=== PATIENT | female | born 1970 | race Caucasian/White ===

== ENCOUNTER 2018-07-11 15:21 | Inpatient (IN) | payer OTHER ==
[2018-07-11] MEDS ORDERED: Sodium Chloride 0.9% 1,000 ML IV STA (15:59)
[2018-07-11 16:25] LABS: BASO % 0.4 % (0.0-2.0); EOS # 0.5 K/uL (0.0-0.7); EOS % 6.9 % (0.0-4.0); HEMOGLOBIN 14.4 g/dL (12.0-16.0); LYMPH # 1.4 K/uL (1.0-4.3); MEAN CELL VOLUME 87.5 fl (81.0-99.0); MEAN CORPUSCULAR HEMOGLOBIN 29.3 pg (27.0-31.0); MEAN CORPUSCULAR HGB CONC 33.5 g/dL (33.0-37.0); MEAN PLATELET VOLUME 7.2 fl (7.2-11.7); MONO # 0.7 K/uL (0.0-0.8); MONO % 9.6 % (0.0-10.0); NEUT # 4.3 K/uL (1.8-7.0); NEUT % 62.1 % (50.0-75.0); NRBC % 0.1 % (0.0-0.0); RBC 4.91 Mil/uL (3.80-5.20); RED CELL DISTRIBUTION WIDTH 12.9 % (11.5-14.5); WHITE BLOOD COUNT 6.9 K/uL (4.8-10.8)
--- NOTE | 2018-07-11 16:32 | RAD ---
Date of service: 07/11/2018 HISTORY: cough COMPARISON: No prior. FINDINGS: LUNGS: No active pulmonary disease. PLEURA: No significant pleural effusion identified, no pneumothorax apparent. CARDIOVASCULAR: No aortic atherosclerotic calcification present. Normal cardiac size. No pulmonary vascular congestion. OSSEOUS STRUCTURES: No significant abnormalities. VISUALIZED UPPER ABDOMEN: Normal. OTHER FINDINGS: None. IMPRESSION: No active disease.
[2018-07-11 16:33] LABS: BLOOD UREA NITROGEN 23 mg/dl (7-17); CALCIUM 10.3 mg/dL (8.4-10.2); GFR NON-AFRICAN AMERICAN > 60
--- NOTE | 2018-07-11 18:37 | ED PDOC ---
HPI: Influenza Time Seen by Provider: 07/11/18 15:48 Chief Complaint: Flu-like Symptoms Chief Complaint (Provider): Flu-like Symptoms History Per: Patient Exam Limitations: no limitations Onset/Duration Of Symptoms: Days (x1 day) Symptoms include: headache, vomiting. denies: fever, diarrhea Sick Contacts (Context): None Additional complaint(s):: Kasie Jones is a 47 year old female with a past medical history of HTN, who presents to the emergency department complaining of vomiting, headache and dizziness, onset x1 day. Patient states she has not been able to tolerate food or drinks today. She denies any fever, diarrhea, sick contact or previous abdominal surgeries. PMD: Daniel Mcbride Past Medical History Reviewed: Historical Data, Nursing Documentation, Vital Signs Vital Signs: Last Vital Signs Temp 98.5 F 07/11/18 15:32 Pulse 72 07/11/18 15:32 Resp 17 07/11/18 15:32 BP 124/72 07/11/18 15:32 Pulse Ox 93 L 07/11/18 15:32 - Medical History PMH: HTN - Surgical History Surgical History: No Surg Hx - Family History Family History: States: Unknown Family Hx - Immunization History Hx Tetanus Toxoid Vaccination: No Hx Influenza Vaccination: No Hx Pneumococcal Vaccination: No - Home Medications Home Medications: Ambulatory Orders Medication Instructions Recorded Unobtainable 02/23/16 - Allergies Allergies/Adverse Reactions: Allergies Allergy/AdvReac Type Severity Reaction Status Date / Time No Known Allergies Allergy Verified 02/23/16 19:14 Review of Systems ROS Statement: Except As Marked, All Systems Reviewed And Found Negative Constitutional: Negative for: Fever Gastrointestinal: Positive for: Vomiting. Negative for: Diarrhea Neurological: Positive for: Headache, Dizziness Physical Exam - Reviewed Nursing Documentation Reviewed: Yes Vital Signs Reviewed: Yes - Physical Exam Appears: Positive for: Non-toxic, No Acute Distress Head Exam: Positive for: ATRAUMATIC, NORMOCEPHALIC Skin: Positive for: Normal Color, Warm, Dry Eye Exam: Positive for: Normal appearance Neck: Positive for: Normal, Painless ROM, Supple Cardiovascular/Chest: Positive for: Regular Rate, Rhythm. Negative for: Murmur Respiratory: Positive for: Normal Breath Sounds. Negative for: Respiratory Distress Gastrointestinal/Abdominal: Positive for: Normal Exam, Soft. Negative for: Tenderness Back: Positive for: Normal Inspection. Negative for: L CVA Tenderness, R CVA Tenderness, Vertebral Tenderness Extremity: Positive for: Normal ROM. Negative for: Pedal Edema, Deformity Neurologic/Psych: Positive for: Alert, Oriented Medical Decision Making Medical Decision Making: Time: 15:58 A/P: Work up for infectious process, abdomen exam was benign, IV fluids, Zofran, Toradol, Chest x-ray and Reglan. --BMP --CBC with differential --Chest-xray --Sodium chloride 1,000 ml --Reglan 10 mg IVP --Toradol 30 mg IVP --Influenza A B 16:28 Chest x-ray FINDINGS: LUNGS: No active pulmonary disease. PLEURA: No significant pleural effusion identified, no pneumothorax apparent. CARDIOVASCULAR: No aortic atherosclerotic calcification present. Normal cardiac size. No pulmonary vascular congestion. OSSEOUS STRUCTURES: No significant abnormalities. VISUALIZED UPPER ABDOMEN: Normal. OTHER FINDINGS: None. IMPRESSION: No active disease. 18:25 Patient is now expressing suicidal ideation, stating she now wants to kill herself. Provider ordered crisis consultation. 1930 Pt with normal labs and unremarkable physical exam. Pt seen by psychiatry and will be admitted to psychiatry under Dr. Richardson for depression. Scribe Attestation: Documented by Edilson Jordan , acting as a scribe for Jenna Morales MD. Provider Scribe Attestation: All medical record entries made by the Scribe were at my direction and personally dictated by me. I have reviewed the chart and agree that the record accurately reflects my personal performance of the history, physical exam, medical decision making, and the department course for this patient. I have also personally directed, reviewed, and agree with the discharge instructions and disposition. - Laboratory Results Result Diagrams: 07/11/18 16:10 07/11/18 16:10 - ECG O2 Sat by Pulse Oximetry: 93 (RA) Pulse Ox Interpretation: Abnormal Disposition - Clinical Impression Clinical Impression: Depression, Headache - Patient ED Disposition Is Patient to be Admitted: Yes - Disposition Disposition Time: 19:30 Condition: STABLE Forms: [facility] (Yi)
[2018-07-11 20:23] VITALS: O2SAT 96
[2018-07-11] MEDS ORDERED: DiphenhydrAMINE 50 mg/ml Inj IM PRN (22:25)
[2018-07-11] MEDS ORDERED: Magnesium Hydroxide Susp 30 ml UD PO PRN (22:25)
--- NOTE | 2018-07-11 22:40 | PCM.BM ---
<Tai Wilson - Last Filed: 07/11/18 23:11> Treatment Plan Problems - Problems identified on initial assessmt Feeling of Hopelessness/Helplessness Date Initiated: 07/11/18 Time Initiated: 22:37 Assessment reference: HP, NA Status: Active Treatment assets and liabiliti Patient Assests: adapts well (with son abusing marijuana), cooperative, good support system, negotiates basic needs Patient Liabilities: relationship conflicts - Milieu Protocol Maintain good personal hygiene: daily Encourage regular showers, daily Remind patient to perform daily oral care, daily Assist patient to perform ADL's Maintain personal safety: every shift Educate patient to report safety concerns to staff, every shift Monitor environment for contraband/sharps Medication safety: Monitor for expected outcome, potential side effects: every shift, Assess barriers to learning: every shift, Assess readiness for medication education: every shift <Carly Giron - Last Filed: 07/12/18 11:34> - Diagnosis (1) Major depressive disorder Status: Acute Interventions: Medication management, Individual and group therapy, Psychoeducation 07/12/18 11:35 <Danielle Callahan - Last Filed: 07/12/18 13:04> Family Contact Family involvement: Family/SO is involved Family contact: Patient agrees to contact, Family has been contacted by patient, Telephone contact initiated by staff Family contact name: Kaleb - mother Family contacted how many times per week?: 2 - Outside Agency Dr. Tai Brenner MD Care involvment: Information-sharing Agency contact number: [facility] Care involvment: Not involved Agency contact number: [phone] Discharge/Continuing Care - Education Needs Education Needs: Family Medication, Family Diagnosis/Disease Process, Family Coping Skills, Family Placement options, Family Community resources, Family Activities of Daily Living, Family Nutrition, Family Health Practices/Safety, Family Personal Hygiene/Grooming, Family Aftercare Safety Plan, Patient Medication, Patient Diagnosis/Disease Process, Patient Coping Skills, Patient Placement options, Patient Community resources, Patient Activities of Daily Living, Patient Nutrition, Patient Health Practices/Safety, Patient Personal Hygiene/Grooming, Patient Aftercare Safety Plan - Discharge Discharge Criteria: Tolerates medication w/o severe side effects, Free of Suicidal thoughts, Normal sleep pattern, Ability to care for self, Reduction of target symptoms, Other (Reduction of depressive symptoms) Discharge to:: With Family - Additional Comments 07/12/18 12:54 Pt seen and discussed in team meeting. Reason for hospitalization reviewed and discussed. Pt reported she was initially referred to the ED due to flu like symptoms. Pt reported that she was experiencing dizziness, vomiting, low back pain, and frequency of urination. Pt reported that she has been dx with depression and anxiety in the past. Pt reported that her mother disclosed to the ED nurse that last week pt stated "I feel like dying." Pt denied intent and plan. Pt reported that lately she has been feeling sick and that is just how she felt at the moment. Pt denied SI and HI. Pt denied any prior suicide thoughts/attempts/intent/plan. Pt reported that she has been refusing to leave the house unless she is 'forced" by someone else, refusing to shower, and isolate and withdrawn from and son. Pt reported that at home she would spend most of her time in the bedroom. Pt reported having no motivation and initiation. Pt reported that 3-4 months ago she was recommended to Dr. Jordin MD by a friend and since then has been under his care. Pt reported that she has not met him in person, but rather seeks tx with him via telepsych. Pt reported that he has prescribed her multiple mediations but never explained what the medications are for. Attending psychiatrist, Dr. Giron reviewed current medication list with pt at length and in detail. Pt verbalized agreement to several medication discontinuation and increase of other medications. Pt's social and medical issues reviewed. Pt provided brief writer with verbal and written consent to contact her mother, Kaleb. Tx plan and goals reviewed. Pt verbalized agreement to tx plan and continued stay on the unit. Dispensing Operator will continue to follow case. - Treatment Team Participation Discussed with Family/SO: No Was Patient/Family/SO present at Treatment Team Meeting: Yes
[2018-07-12 08:09] LABS: SQUAMOUS EPITHIAL 9 /hpf (0-5); URINE AMORPHOUS SEDIMENT OCC /ul (<OCC); URINE BACTERIA RARE (<OCC); URINE BILIRUBIN NEGATIVE (NEGATIVE); URINE BLOOD NEGATIVE (NEGATIVE); URINE CLARITY TURBID (Clear); URINE COLOR YELLOW (YELLOW); URINE GLUCOSE (UA) NEG (NEGATIVE); URINE LEUKOCYTE ESTERASE SMALL Leu/uL (Negative); URINE PROTEIN 30 mg/dL (NEGATIVE); URINE TRIPLE PHOSPHATE CRYSTAL MOD /hpf (<OCC); URINE UROBILINOGEN 0.2-1.0 mg/dL (0.2-1.0)
--- NOTE | 2018-07-12 08:16 | PCM.PSYCH ---
Initial Psychiatric Evaluation - Initial Psychiatric Evaluation Type of Admission: Voluntary Legal Status: Capacity Chief Complaint (in patient's own words): "I'm depressed." Patient's Reaction to Hospitalization: HPI: 47 yo female w/ h/o MDD, presents w/ worsening depression, decreased desire to leave her home, showering less, not caring for ADLS, poor sleep/appetite and hopelessness. The week prior to admission the patient expressed ideation to to her mother, but denies acute suicidal ideation/plan/intent. She denies acute AH/VH/paranoia/delusions. A + O x 3. Patient does not report any cognitive deficits. PPHx: Outpatient psychiatric treatment with Dr. Brenner; currently on Trintellix, Buproprion, Temazepam, Effexor, Xanax, Lamictal, Namenda; patient is unclear why she is being treated with so many medications and denies cognitive deficits which would warrant her to be treated with Namenda PMHx: HTN, Allergies ALL: NKDA SHx: Lives w/ and 22yr old son; has 3 children in total; currently unemployed, denies drugs/etoh/cig use Current Medications: Active Medications Generic Name Dose Route Start Last Admin Trade Name Freq PRN Reason Stop Dose Admin Acetaminophen 650 mg 07/11/18 22:25 Tylenol 325mg Tab PO Q4 PRN for 4-7 pain Al Hydrox/Mg Hydrox/Simethicone 30 ml 07/11/18 22:25 Maalox Plus 30 Ml PO Q4 PRN Dyspepsia Diphenhydramine HCl 50 mg 07/11/18 22:25 Benadryl IM Q6 PRN Extrapyramidal S/S Unable PO Diphenhydramine HCl 50 mg 07/11/18 22:25 Benadryl PO Q6 PRN Extrapyramidal Symptoms Diphenhydramine HCl 50 mg 07/11/18 22:25 Benadryl PO HS PRN Sleep Haloperidol 5 mg 07/11/18 22:25 Haldol PO Q4 PRN Agitation Haloperidol Lactate 5 mg 07/11/18 22:25 Haldol IM Q4 PRN Agitation, Unable to Take PO Lorazepam 1 mg 07/11/18 22:25 Ativan IM Q6 PRN Anxiety/Agitation,Unable PO Lorazepam 1 mg 07/11/18 22:25 Ativan PO Q8 PRN Anxiety/Agitation Magnesium Hydroxide 30 ml 07/11/18 22:25 Milk Of Magnesia PO HS PRN Constipation Past Psychiatric History - Past Psychiatric History Pertinent Medical Hx (Current Medical&Sleep Prob, Allergies): Allergies Allergy/AdvReac Type Severity Reaction Status Date / Time No Known Allergies Allergy Verified 02/23/16 19:14 Alprazolam [Xanax] 0.25 mg PO Q6 PRN 07/11/18 Atorvastatin [Lipitor] 20 mg PO HS 07/11/18 Bupropion HCl [Zyban] 150 mg PO HS 07/11/18 Conjugated Estrogens [Premarin] 0.625 mg PO HS 07/11/18 Lamotrigine [Lamictal] 200 mg PO HS 07/11/18 Levocetirizine Dihydrochloride [Xyzal] 5 mg PO DAILY 07/11/18 Losartan/Hydrochlorothiazide [Losartan-Hctz 100-25 mg Tab] 1 tab PO DAILY 07/11/18 Memantine [Namenda] 10 mg PO BID 07/11/18 Metoprolol Succinate [Kapspargo Sprinkle] 100 mg PO DAILY 07/11/18 Montelukast [Singulair] 10 mg PO DAILY 07/11/18 Temazepam [Restoril] 30 mg PO HS PRN 07/11/18 Venlafaxine [Effexor XR] 75 mg PO DAILY 07/11/18 Vortioxetine Hydrobromide [Trintellix] 20 mg PO AC 07/11/18 Review of Systems - Psychiatric Psychiatric: As Per HPI, Abnormal Sleep Pattern, Anhedonia, Anxiety, Behavioral Changes, Change in Appetite, Depression, Difficulty Concentrating, Hopelessness, Irritability, Mood Swings, Suicidal Ideation Mental Status Examination - Personal Presentation Personal Presentation: Looks stated age - Affect Affect: Constricted, Depressed - Motor Activity Motor Activity: Calm - Reliability in Providing Information Reliability in Providing Information: Fair - Speech Speech: Organized, Coherent - Mood Mood: Depressed - Formal Thought Process Formal Thought Process: Circumstantial - Hallucinations/Delusions Additional comments: No AH/VH/paranoia/delusions - Obsessions/Compulsions Obsessions: No Compulsions: No - Cognitive Functions Orientation: Person, Place, Situation, Time Sensorium: Alert Attention/Concentration: Attentive Judgement: Intact, as evidence by: Insight regarding need for hospitalization Memory: Recent intact, as evidence by: Ability to recall events of the day - Risk Risk: Diminished functioning - Strength & Assets Inventory Strength & Assets Inventory: Cooperative DSM 5 DX - DSM 5 DSM 5 Diagnosis: Major Depressive Disorder, Severe, Recurrent - Recommended/Plan of Treatment Treatment Recommendations and Plan of Treatment: Major Depressive Disorder, Severe, Recurrent; r/o Bipolar II Disorder -Admit to psychiatry unit -Discussed w/ patient that we will reduce polypharmacology as it is not helping the patient is likely causing increased risk of adverse effects; hold Trintellix, Xanax, Effexor, Namenda; Increase Bupropion; Continue Temazepam and Lamictal -Medicine consult -Individual and group therapy -Psychoeducation -Disposition planning Projected ELOS: 5-7 days Discharge Plan and Discharge Criteria: Discharge when patient is psychiatrically stable - Smoking Cessation Smoking Cessation Initiated: No Reason for not providing: Not indicated
[2018-07-12] MEDS ORDERED: Patient's Own Med (Losartan/Hydrochlorothiazide [Losartan-Hctz 100-25 Mg Tab] 1 TAB) PO SCH (11:30)
[2018-07-12] MEDS ORDERED: METOPROLOL SUCCINATE 100 MG PO SCH (12:00)
[2018-07-12 12:04] LABS: T4 9.32 ug/dl (5.5-11.0)
[2018-07-12] MEDS: buPROPion SR 150 MG TABLET PO SCH ×2 (13:11→16:28)
--- NOTE | 2018-07-13 07:46 | CP.PCM.CON ---
<Gonzalez Schultz - Last Filed: 07/13/18 15:41> History of Present Illness - History of Present Illness History of Present Illness: Pt is a47 y/o female with hx of alcohol abuse Pt is a 47 y/o female with hx of HTN who presented to [facility] ED on 07/11 with complaints of vomiting and dizziness and was found to be hypokalemic, dehydrated, with abnormal UA. She was treated with 1L IV fluids and Reglan. She also reports today that she has had a non productive cough for the past 2 days. Denies fever/chills. Cxray in ED shows no active disease. Later in ED course, pt expressed suicidal ideation and was admitted to psych for further evaluation and treatment of major depressive disorder. ROS 12 point negative. PMD: Daniel Mcbride PMHX: HTN, Asthma, Bipolar, depression, Anxiety PsurgHx: denies PFmhx: denies NKDA Social: non smoker Past Patient History - Past Social History Smoking Status: Never Smoked - CARDIAC Hx Hypertension: Yes - PSYCHIATRIC Hx Depression: Yes Hx Substance Use: No - SURGICAL HISTORY Hx Hysterectomy: Yes - ANESTHESIA Hx Anesthesia: Yes Hx Anesthesia Reactions: No Hx Malignant Hyperthermia: No Has any member of the family had a problem w/ anesthesia?: No Meds Allergies/Adverse Reactions: Allergies Allergy/AdvReac Type Severity Reaction Status Date / Time No Known Allergies Allergy Verified 02/23/16 19:14 - Medications Medications: Current Medications Acetaminophen (Tylenol 325mg Tab) 650 mg PO Q4 PRN PRN Reason: for 4-7 pain Last Admin: 07/12/18 09:08 Dose: 650 mg Al Hydrox/Mg Hydrox/Simethicone (Maalox Plus 30 Ml) 30 ml PO Q4 PRN PRN Reason: Dyspepsia Amlodipine Besylate (Norvasc) 5 mg PO DAILY ASHER Atorvastatin Calcium (Lipitor) 20 mg PO HS ASHER Last Admin: 07/12/18 21:03 Dose: 20 mg Bupropion HCl (Wellbutrin Sr 150 Mg) 150 mg PO BID ASHER Last Admin: 07/12/18 16:28 Dose: 150 mg Diphenhydramine HCl (Benadryl) 50 mg IM Q6 PRN PRN Reason: Extrapyramidal S/S Unable PO Diphenhydramine HCl (Benadryl) 50 mg PO Q6 PRN PRN Reason: Extrapyramidal Symptoms Diphenhydramine HCl (Benadryl) 50 mg PO HS PRN PRN Reason: Sleep Estrogens Conjugated (Premarin) 0.625 mg PO HS [facility] Haloperidol (Haldol) 5 mg PO Q4 PRN PRN Reason: Agitation Haloperidol Lactate (Haldol) 5 mg IM Q4 PRN PRN Reason: Agitation, Unable to Take PO Hydrochlorothiazide (Hydrodiuril) 25 mg PO DAILY [facility] Last Admin: 07/12/18 16:27 Dose: 25 mg Lamotrigine (Lamictal) 200 mg PO DAILY [facility] Last Admin: 07/12/18 13:09 Dose: 200 mg Lorazepam (Ativan) 1 mg IM Q6 PRN PRN Reason: Anxiety/Agitation,Unable PO Lorazepam (Ativan) 1 mg PO Q8 PRN PRN Reason: Anxiety/Agitation Losartan Potassium (Cozaar) 100 mg PO DAILY [facility] Last Admin: 07/12/18 16:28 Dose: 100 mg Magnesium Hydroxide (Milk Of Magnesia) 30 ml PO HS PRN PRN Reason: Constipation Montelukast Sodium (Singulair) 10 mg PO DAILY [facility] Last Admin: 07/12/18 13:10 Dose: 10 mg Temazepam (Restoril) 15 mg PO HS [facility] Last Admin: 07/12/18 21:03 Dose: 15 mg Physical Exam - Constitutional Appears: No Acute Distress - Head Exam Head Exam: NORMAL INSPECTION - Eye Exam Eye Exam: Normal appearance - ENT Exam ENT Exam: Mucous Membranes Moist Additional comments: +nasal congestion - Neck Exam Neck exam: Positive for: Full Rom - Respiratory Exam Respiratory Exam: Clear to Auscultation Bilateral. absent: Accessory Muscle Use, Rales, Rhonchi, Wheezes, Respiratory Distress, Stridor - GI/Abdominal Exam GI & Abdominal Exam: Normal Bowel Sounds, Soft. absent: Tenderness - Extremities Exam Extremities exam: Positive for: normal inspection - Neurological Exam Neurological exam: Alert, Oriented x3 - Psychiatric Exam Psychiatric exam: Normal Affect - Skin Skin Exam: Normal Color Results - Vital Signs Recent Vital Signs: Last Vital Signs Temp 97.9 F 07/13/18 05:39 Pulse 82 07/13/18 05:39 Resp 18 07/13/18 05:39 BP 145/76 12/11/18 05:39 Pulse Ox 96 07/11/18 22:09 - Labs Result Diagrams: 07/11/18 16:10 07/11/18 16:10 Labs: Laboratory Results - last 24 hr 07/12/18 07/12/18 07/12/18 07:45 08:50 08:50 Hemoglobin A1c Triglycerides 171 H Cholesterol 215 H LDL Cholesterol Direct 125 HDL Cholesterol 75 H Thyroxine (T4) 9.32 TSH 3rd Generation 2.81 Urine Color Yellow Urine Clarity Turbid Urine pH 8.0 Ur Specific [place] 1.019 Urine Protein 30 Urine Glucose (UA) Neg Urine Ketones Negative Urine Blood Negative Urine Nitrate Negative Urine Bilirubin Negative Urine Urobilinogen 0.2-1.0 Ur Leukocyte Esterase Small Urine RBC (Auto) 2 Urine Microscopic WBC 24 H Ur Squamous Epith Cells 9 H Triple Phos Crystals Mod H Amorphous Sediment Occ H Urine Bacteria Rare RPR Nonreactive 07/12/18 08:50 Hemoglobin A1c 6.0 Triglycerides Cholesterol LDL Cholesterol Direct HDL Cholesterol Thyroxine (T4) TSH 3rd Generation Urine Color Urine Clarity Urine pH Ur Specific [place] Urine Protein Urine Glucose (UA) Urine Ketones Urine Blood Urine Nitrate Urine Bilirubin Urine Urobilinogen Ur Leukocyte Esterase Urine RBC (Auto) Urine Microscopic WBC Ur Squamous Epith Cells Triple Phos Crystals Amorphous Sediment Urine Bacteria RPR Assessment & Plan - Assessment and Plan (Free Text) Assessment: Pt is a 47 y/o female with hx of HTN who presented to [facility] ED on 07/11 with complaints of vomiting and dizziness and was found to be hypokalemic, dehydrated, with abnormal UA. She was treated with 1L IV fluids and Reglan. She also reports today that she has had a non productive cough for the past 2 days. Denies fever/chills. Cxray in ED shows no active disease. Later in ED course, pt expressed suicidal ideation and was admitted to psych for further evaluation and treatment of major depressive disorder. Depression w/ suicidal thoughts -As per pysch Cough -Cxray wnl -Afebrile, no leukocytosis -Likely viral in origin -Supportive therapy, encourage po fluids -Tessalon Perles and Cepacol for symptoms -Watch for wheezing -Albuterol prn HTN -Normotensive -c/w home meds -continue monitoring vitals Asthma -stable -no signs of acute exacerbation -C/W Singulair -Albuterol prn if wheezing or dyspnic D/W Dr. Ram <Nate Ram - Last Filed: 07/16/18 10:04> Meds - Medications Medications: Current Medications Albuterol Sulfate (Albuterol 0.083% Inhal Sanna (2.5 Mg/3 Ml) Ud) 2.5 mg INH RQ6 PRN PRN Reason: Shortness of Breath Amlodipine Besylate (Norvasc) 5 mg PO DAILY [facility] Last Admin: 07/16/18 09:26 Dose: 5 mg Atorvastatin Calcium (Lipitor) 40 mg PO HS [facility] Last Admin: 07/15/18 21:44 Dose: 40 mg Benzonatate (Tessalon Perles) 100 mg PO Q8 PRN PRN Reason: Cough Last Admin: 07/16/18 09:26 Dose: 100 mg Bupropion HCl (Wellbutrin Sr 150 Mg) 150 mg PO BID [facility] Last Admin: 07/16/18 09:28 Dose: 150 mg Ciprofloxacin (Cipro) 250 mg PO Q12 [facility]; Protocol Last Admin: 07/15/18 21:24 Dose: 250 mg Estrogens Conjugated (Premarin) 0.625 mg PO [facility] Last Admin: 07/15/18 21:24 Dose: 0.625 mg Hydrochlorothiazide (Hydrodiuril) 25 mg PO DAILY [facility] Last Admin: 07/16/18 09:27 Dose: 25 mg Lamotrigine (Lamictal) 200 mg PO DAILY [facility] Last Admin: 07/16/18 09:32 Dose: 200 mg Losartan Potassium (Cozaar) 100 mg PO DAILY [facility] Last Admin: 07/15/18 09:03 Dose: 100 mg Montelukast Sodium (Singulair) 10 mg PO DAILY [facility] Last Admin: 07/16/18 09:26 Dose: 10 mg Temazepam (Restoril) 15 mg PO HS [facility] Last Admin: 07/15/18 21:23 Dose: 15 mg Results - Vital Signs Recent Vital Signs: Last Vital Signs Temp 97.5 F L 07/16/18 06:00 Pulse 88 07/16/18 09:26 Resp 18 07/16/18 06:00 BP 138/74 07/16/18 09:26 Pulse Ox 96 07/11/18 22:09 - Labs Result Diagrams: 07/11/18 16:10 07/11/18 16:10 Assessment & Plan - Assessment and Plan (Free Text) Assessment: Patient was personally seen and examined by me in rounds with residents. Available labs and diagnostic data reviewed. Case, Patient's condition and management plan discussed with residents in rounds . Agree with resident's progress note. Plan: As ordered.
[2018-07-13] MEDS: buPROPion SR 150 MG TABLET PO SCH ×2 (08:06→16:19)
--- NOTE | 2018-07-13 10:00 | PCM.PYCHPN ---
Psychiatric Progress Note - Psychiatric Progress Note Patient seen today, length of contact: Pt evaluated, case discussed w/ team, chart reviewed Patient Chief Complaint: "I'm depressed." Problems Identified/Issues Discussed: Pt continues to report feeling depressed w/ low energy, low motivation and constricted affect. She reports improving sleep and appetite. Pt encouraged to engage in the community and participate in groups. She denies adverse effects from the changes in her medication regimen. She denies acute suicidal ideation/plan/intent. Medication Change: No Medical Record Reviewed: Yes Consults ordered or reviewed: Medicine consult Mental Status Examination - Cognitive Function Orientation: Person, Place, Situation, Time Memory: Intact Attention: WNL Concentration: WNL Association: WNL Fund of Knowledge: WN Decription of patient's judgement and insights: Improving I/J - Mood Mood: Depressed - Affect Affect: Constricted, Depressed - Formal Thought Process Formal Thought Process: Circumstantial Psychotic Thoughts and Behaviors: No AH/VH/paranoia/delusions - Suicidal Ideation Suicidal Ideation: No - Homicidal Ideation Homicidal Ideation: No Goal/Treatment Plan - Goal/Treatment Plan Need for Continued Stay: Remain at risks for inpatient hospitalization, Severe depression anxiety Progress Toward Problem(s) and Goals/Treatment Plan: Major Depressive Disorder, Severe, Recurrent; r/o Bipolar II Disorder -Increase Bupropion; Continue Temazepam and Lamictal -Medicine consult -Individual and group therapy -Psychoeducation -Disposition planning Estimated Date of D/C: 07/16/18
[2018-07-13] MEDS ORDERED: Benzocaine/Menthol (Cepacol) Lozenge PO ONE (15:48)
[2018-07-13] MEDS ORDERED: Albuterol 0.083% Inhal Sol (2.5 mg/3 mL) UD INH PRN (15:53)
--- NOTE | 2018-07-14 07:15 | CP.PCM.PN ---
<Gonzalez Schultz - Last Filed: 07/14/18 14:46> Subjective - Date & Time of Evaluation Date of Evaluation: 07/14/18 Time of Evaluation: 08:00 - Subjective Subjective: Pt seen and examined this morning in activity room. Denies complaints. Reports that cough and sore throat is better. Urine culture GNR, sensitivities not yet completed. Objective - Vital Signs/Intake and Output Vital Signs (last 24 hours): Temp Pulse Resp BP Pulse Ox 97.7 F 65 19 122/72 96 07/14/18 06:00 07/14/18 06:00 07/14/18 06:00 07/14/18 06:00 07/11/18 22:09 - Medications Medications: Current Medications Acetaminophen (Tylenol 325mg Tab) 650 mg PO Q4 PRN PRN Reason: for 4-7 pain Last Admin: 07/14/18 03:57 Dose: 650 mg Al Hydrox/Mg Hydrox/Simethicone (Maalox Plus 30 Ml) 30 ml PO Q4 PRN PRN Reason: Dyspepsia Albuterol Sulfate (Albuterol 0.083% Inhal Sanna (2.5 Mg/3 Ml) Ud) 2.5 mg INH RQ6 PRN PRN Reason: Shortness of Breath Amlodipine Besylate (Norvasc) 5 mg PO DAILY [facility] Last Admin: 07/13/18 10:35 Dose: 5 mg Atorvastatin Calcium (Lipitor) 40 mg PO HS [facility] Benzonatate (Tessalon Perles) 100 mg PO Q8 PRN PRN Reason: Cough Bupropion HCl (Wellbutrin Sr 150 Mg) 150 mg PO BID [facility] Last Admin: 07/13/18 16:19 Dose: 150 mg Diphenhydramine HCl (Benadryl) 50 mg IM Q6 PRN PRN Reason: Extrapyramidal S/S Unable PO Diphenhydramine HCl (Benadryl) 50 mg PO Q6 PRN PRN Reason: Extrapyramidal Symptoms Diphenhydramine HCl (Benadryl) 50 mg PO HS PRN PRN Reason: Sleep Estrogens Conjugated (Premarin) 0.625 mg PO HS [facility] Last Admin: 07/13/18 21:11 Dose: 0.625 mg Haloperidol (Haldol) 5 mg PO Q4 PRN PRN Reason: Agitation Haloperidol Lactate (Haldol) 5 mg IM Q4 PRN PRN Reason: Agitation, Unable to Take PO Hydrochlorothiazide (Hydrodiuril) 25 mg PO DAILY [facility] Last Admin: 07/13/18 08:06 Dose: 25 mg Lamotrigine (Lamictal) 200 mg PO DAILY [facility] Last Admin: 07/13/18 08:07 Dose: 200 mg Lorazepam (Ativan) 1 mg IM Q6 PRN PRN Reason: Anxiety/Agitation,Unable PO Lorazepam (Ativan) 1 mg PO Q8 PRN PRN Reason: Anxiety/Agitation Losartan Potassium (Cozaar) 100 mg PO DAILY [facility] Last Admin: 07/13/18 08:05 Dose: 100 mg Magnesium Hydroxide (Milk Of Magnesia) 30 ml PO HS PRN PRN Reason: Constipation Montelukast Sodium (Singulair) 10 mg PO DAILY [facility] Last Admin: 07/13/18 08:08 Dose: 10 mg Temazepam (Restoril) 15 mg PO HS [facility] Last Admin: 07/13/18 21:13 Dose: 15 mg - Labs Labs: 07/11/18 16:10 07/11/18 16:10 - Constitutional Appears: No Acute Distress - Head Exam Head Exam: NORMAL INSPECTION - Eye Exam Eye Exam: Normal appearance - ENT Exam ENT Exam: Mucous Membranes Moist - Respiratory Exam Respiratory Exam: Clear to Ausculation Bilateral. absent: Rales, Wheezes - Cardiovascular Exam Cardiovascular Exam: REGULAR RHYTHM, +S1, +S2. absent: Murmur - GI/Abdominal Exam GI & Abdominal Exam: Soft, Normal Bowel Sounds. absent: Tenderness - Back Exam Back Exam: absent: CVA tenderness (L), CVA tenderness (R) - Neurological Exam Neurological Exam: Alert - Psychiatric Exam Psychiatric exam: Normal Affect Assessment and Plan - Assessment and Plan (Free Text) Assessment: Pt is a 47 y/o female with hx of HTN who presented to [facility] ED on 07/11 with complaints of vomiting and dizziness and was found to be hypokalemic, dehydrated, with abnormal UA. She was treated with 1L IV fluids and Reglan. She also reports today that she has had a non productive cough for the past 2 days. Denies fever/chills. Cxray in ED shows no active disease. Later in ED course, pt expressed suicidal ideation and was admitted to psych for further evaluation and treatment of major depressive disorder. Depression w/ suicidal thoughts -As per pysch Cough -Cxray wnl -Afebrile, no leukocytosis -Likely viral in origin -Supportive therapy, encourage po fluids -Tessalon Perles and Cepacol for symptoms -Watch for wheezing -Albuterol prn UTI -Complains of frequent urination -Afebrile, no leukocytosis -Ucx Gram Neg Rods (pending sensitivities) -Will start Ciprofloxacin for empiric coverage HTN -Normotensive -c/w home meds -continue monitoring vitals Asthma -stable -no signs of acute exacerbation -C/W Singulair -Albuterol prn if wheezing or dyspnic D/W Dr. Ram <Nate Ram - Last Filed: 07/16/18 10:02> Objective - Vital Signs/Intake and Output Vital Signs (last 24 hours): Temp Pulse Resp BP Pulse Ox 97.5 F L 88 18 138/74 96 07/16/18 06:00 07/16/18 09:26 07/16/18 06:00 07/16/18 09:26 07/11/18 22:09 - Medications Medications: Current Medications Albuterol Sulfate (Albuterol 0.083% Inhal Sanna (2.5 Mg/3 Ml) Ud) 2.5 mg INH RQ6 PRN PRN Reason: Shortness of Breath Amlodipine Besylate (Norvasc) 5 mg PO DAILY [facility] Last Admin: 07/16/18 09:26 Dose: 5 mg Atorvastatin Calcium (Lipitor) 40 mg PO HS [facility] Last Admin: 07/15/18 21:44 Dose: 40 mg Benzonatate (Tessalon Perles) 100 mg PO Q8 PRN PRN Reason: Cough Last Admin: 07/16/18 09:26 Dose: 100 mg Bupropion HCl (Wellbutrin Sr 150 Mg) 150 mg PO BID [facility] Last Admin: 07/16/18 09:28 Dose: 150 mg Ciprofloxacin (Cipro) 250 mg PO Q12 [facility]; Protocol Last Admin: 07/15/18 21:24 Dose: 250 mg Estrogens Conjugated (Premarin) 0.625 mg PO HS [facility] Last Admin: 07/15/18 21:24 Dose: 0.625 mg Hydrochlorothiazide (Hydrodiuril) 25 mg PO DAILY [facility] Last Admin: 07/16/18 09:27 Dose: 25 mg Lamotrigine (Lamictal) 200 mg PO DAILY [facility] Last Admin: 07/16/18 09:32 Dose: 200 mg Losartan Potassium (Cozaar) 100 mg PO DAILY [facility] Last Admin: 07/15/18 09:03 Dose: 100 mg Montelukast Sodium (Singulair) 10 mg PO DAILY [facility] Last Admin: 07/16/18 09:26 Dose: 10 mg Temazepam (Restoril) 15 mg PO HS [facility] Last Admin: 07/15/18 21:23 Dose: 15 mg - Labs Labs: 07/11/18 16:10 07/11/18 16:10 Assessment and Plan - Assessment and Plan (Free Text) Assessment: Patient was personally seen and examined by me in rounds with residents. Available labs and diagnostic data reviewed. Case, Patient's condition and management plan discussed with residents in rounds. Agree with resident's progress note. Plan: As ordered.
[2018-07-14] MEDS: buPROPion SR 150 MG TABLET PO SCH ×2 (08:15→16:23)
[2018-07-14] MEDS: Alum-Mag Hydrox-Simethicone Susp (30 mL) PO PRN ×2 (10:29→23:00)
--- NOTE | 2018-07-14 10:44 | PCM.PYCHPN ---
Psychiatric Progress Note - Psychiatric Progress Note Patient seen today, length of contact: Pt evaluated, case discussed w/ team, chart reviewed Patient Chief Complaint: "I'm depressed." Problems Identified/Issues Discussed: Pt continues to report feeling depressed w/ low energy, low motivation and constricted affect. She reports that she feels like crying at times and discussed her stress with her son who has mental illness and lives w/ her at home. She reports improving sleep and appetite. She denies adverse effects from the changes in her medication regimen. She denies acute suicidal ideation/plan/intent. Medication Change: No Medical Record Reviewed: Yes Consults ordered or reviewed: Medicine consult Mental Status Examination - Cognitive Function Orientation: Person, Place, Situation, Time Memory: Intact Attention: WNL Concentration: WNL Association: WNL Fund of Knowledge: WNL Decription of patient's judgement and insights: Improving I/J - Mood Mood: Depressed - Affect Affect: Constricted, Depressed - Formal Thought Process Formal Thought Process: Circumstantial Psychotic Thoughts and Behaviors: No AH/VH/paranoia/delusions - Suicidal Ideation Suicidal Ideation: No - Homicidal Ideation Homicidal Ideation: No Goal/Treatment Plan - Goal/Treatment Plan Need for Continued Stay: Remain at risks for inpatient hospitalization, Severe depression anxiety Progress Toward Problem(s) and Goals/Treatment Plan: Major Depressive Disorder, Severe, Recurrent; r/o Bipolar II Disorder -Increase Bupropion; Continue Temazepam and Lamictal -Medicine consult -Individual and group therapy -Psychoeducation -Disposition planning Estimated Date of D/C: 07/16/18
[2018-07-15 06:14] VITALS: TEMP 97.5
[2018-07-15] MEDS: buPROPion SR 150 MG TABLET PO SCH ×2 (09:06→17:00)
--- NOTE | 2018-07-15 10:53 | PCM.PYCHPN ---
Psychiatric Progress Note - Psychiatric Progress Note Patient seen today, length of contact: Pt evaluated, case discussed w/ team, chart reviewed Patient Chief Complaint: "I'm depressed." Problems Identified/Issues Discussed: Pt reports that her mood is improving. She reports improvement in sleep. We discussed the importance of therapy and using coping strategies to deal with stress. She is more goal oriented. No AH/VH/SI/HI. She denies adverse effects from the changes in her medication regimen. Medication Change: No Medical Record Reviewed: Yes Consults ordered or reviewed: Medicine consult Mental Status Examination - Cognitive Function Orientation: Person, Place, Situation, Time Memory: Intact Attention: WNL Concentration: WNL Association: WNL Fund of Knowledge: WN Decription of patient's judgement and insights: Improving I/J - Mood Mood: Depressed - Affect Affect: Constricted - Speech Speech: Appropriate - Formal Thought Process Formal Thought Process: No Impairment Psychotic Thoughts and Behaviors: No AH/VH/paranoia/delusions - Suicidal Ideation Suicidal Ideation: No - Homicidal Ideation Homicidal Ideation: No Goal/Treatment Plan - Goal/Treatment Plan Need for Continued Stay: Remain at risks for inpatient hospitalization, Severe depression anxiety Progress Toward Problem(s) and Goals/Treatment Plan: Major Depressive Disorder, Severe, Recurrent; r/o Bipolar II Disorder -Continue Bupropion, Temazepam and Lamictal -Medicine consult -Individual and group therapy -Psychoeducation -Disposition planning- patient is improving clinically, will likely discharge tomorrow to home Estimated Date of D/C: 07/16/18
--- NOTE | 2018-07-15 11:50 | PN ---
DATE: 07/15/2018 SUBJECTIVE: The patient seen and examined. Interim events noted. The patient complains of frequency of urination. No burning and no heat. No flank pain. PHYSICAL EXAMINATION: GENERAL: The patient is in no acute distress. VITAL SIGNS: Stable. HEART: S1 and S2. Normal and regular. LUNGS: Good bilateral air exchange. ABDOMEN: Soft and nontender. No costovertebral tenderness. EXTREMITIES: No edema. No calf swelling. No tenderness. No acute ischemia. CENTRAL NERVOUS SYSTEM: Essentially unchanged. DIAGNOSTIC DATA: Available diagnostic data reviewed. Urine culture is positive for 100,000 colonies unit of gram-negative rods, although ID and sensitivity is still pending. ASSESSMENT AND PLAN: We will start the patient empirically on Cipro and follow up the sensitivity. Plan as ordered. Case and plan discussed with the patient. Nate Ram MD
[2018-07-15 17:23] VITALS: RESP 18
--- NOTE | 2018-07-16 08:16 | PCM.PYCHDC ---
Mental Status Examination - Mental Status Examination Orientation: Person, Place, Situation, Time Memory: Intact Mood: Neutral Affect: Broad Speech: Appropriate Attention: WNL Concentration: WNL Association: WNL Fund of Knowledge: WNL Formal Thought Process: No Impairment Description of patient's judgement and insight: Good I/J Psychotic Thoughts and Behaviors: No AH/VH/paranoia/delusions Suicidal Ideation: No Current Homicidal Ideation?: No Discharge Summary - Discharge Note Reason for Hospitalization: HPI: 47 yo female w/ h/o MDD, presents w/ worsening depression, decreased desire to leave her home, showering less, not caring for ADLS, poor sleep/appetite and hopelessness. The week prior to admission the patient expressed ideation to to her mother, but denies acute suicidal ideation/plan/intent. She denies acute AH/VH/paranoia/delusions. A + O x 3. Patient does not report any cognitive deficits. PPHx: Outpatient psychiatric treatment with Dr. Brenner; currently on Trintellix, Buproprion, Temazepam, Effexor, Xanax, Lamictal, Namenda; patient is unclear why she is being treated with so many medications and denies cognitive deficits which would warrant her to be treated with Namenda PMHx: HTN, Allergies ALL: NKDA SHx: Lives w/ and 22yr old son; has 3 children in total; currently unemp loyed, denies drugs/etoh/cig use Consultations:: List each consultation separately and include: 1. Reason for request. 2. Findings. 3. Follow-up Consultations: Medicine consult Summary of Hospital Course include:: 1. Description of specific treatment plan utilized for patients during their course of treatmen. 2. Summarize the time- course for resolution of acute symptoms and/or regressed behaviors. 3. Describe issues identified and worked on during hospitalization. 4. Describe medication utilized. 5. Describe medical problems identified and treated. 6. Reassessment of suicide risk Summary of Hospital Course: Patient was admitted to the psychiatry unit. Individual and group therapy were provided. Her medication regimen was modified to reduce polypharmacology. Patient was stabilized on Wellbutrin SR 150 mg PO BID, Lamictal 200 mg PO Daily and Restoril 15 mg PO HS. Patient reports that her mood has improved. She denies acute AH/VH/SI/HI. She is psychiatrically stable for discharge at this time. - Diagnosis (1) Major depressive disorder Current Visit: Yes Status: Chronic - Final Diagnosis (DSM 5) Condition upon Discharge: STABLE DSM 5: Major Depressive Disorder Disposition: HOME/ ROUTINE Follow-up Treatment Plan: Major Depressive Disorder, Severe, Recurrent; r/o Bipolar II Disorder -Continue Bupropion, Temazepam and Lamictal -Medicine consult -Individual and group therapy -Psychoeducation -On Cipro for UTI -Discharge to home with outpatient follow-up Prescriptions/Medication Reconciliation: amLODIPine [Norvasc] 5 mg PO DAILY #30 tab Atorvastatin [Lipitor] 40 mg PO HS #30 tab buPROPion SR [Wellbutrin SR 150 MG] 150 mg PO BID #60 tab Ciprofloxacin [Cipro] 250 mg PO Q12 #10 tab Lamotrigine [Lamictal] 200 mg PO DAILY #30 tab Losartan/Hydrochlorothiazide [Losartan-Hctz 100-25 mg Tab] 1 tab PO DAILY #30 tablet Montelukast [Singulair] 10 mg PO DAILY #30 tab Temazepam [Restoril] 15 mg PO HS #30 cap - Smoking Cessation Smoking Cessation Medication prescribed: No Reason for not providing: Not indicated - Antipsychotic Medications Pt discharged on 2 or more routine antipsychotic medications: No
[2018-07-16] MEDS: buPROPion SR 150 MG TABLET PO SCH (09:28)
[2018-07-16 09:33] VITALS: PULSE 88
[2018-07-16 11:54] VITALS: BP 132/76
--- NOTE | 2018-07-16 12:07 | PN ---
DATE: 07/16/2018 SUBJECTIVE: The patient seen and examined. Interim events noted. Psychiatric followup and intervention noted and appreciated. The patient remains in geropsych unit. The patient feels okay. Urinary symptoms is slightly better. No chest pain or shortness of breath. PHYSICAL EXAMINATION: GENERAL: The patient is in no acute distress. VITAL SIGNS: Stable. HEART: S1, S2 normal and regular. LUNGS: Good bilateral air exchange. ABDOMEN: Soft, nontender. EXTREMITIES: No edema. No calf swelling. No tenderness. No acute ischemia. CENTRAL NERVOUS SYSTEM: Essentially unchanged. DIAGNOSTIC DATA: Available diagnostic data reviewed. Urine culture shows Proteus mirabilis sensitive to antibiotic Cipro which is already started. ASSESSMENT AND PLAN: Overall, the patient is medically stable. Urinary tract infection is adequately being treated. Plan as ordered. Nate Ram MD
== END 2018-07-16 13:15 | disposition home or self-care (01) | DRG 430 ==
LOC: H.ER 15:21 → H.ERHOLD 19:32 → H.STEP 22:18
PROVIDERS: ADMIT Psychiatry & Neurology Psychiatry; ATTEND Psychiatry & Neurology Psychiatry
PROC: GZHZZZZ Group Psychotherapy (ICD-10-PCS; principal; 2018-07-12)
PROC: GZ51ZZZ Individual Psychotherapy, Behavioral (ICD-10-PCS; 2018-07-12)
PROC: GZ56ZZZ Individual Psychotherapy, Supportive (ICD-10-PCS; 2018-07-12)
DX: F33.2 Major depressive disorder, recurrent severe without psychotic features (principal); N39.0 Urinary tract infection, site not specified; E86.0 Dehydration; E86.1 Hypovolemia; I10 Essential (primary) hypertension; J45.909 Unspecified asthma, uncomplicated; R45.851 Suicidal ideations; Z79.899 Other long term (current) drug therapy; F10.10 Alcohol abuse, uncomplicated; M54.5 Low back pain